=== PATIENT | female | born 1995 | race Caucasian/White ===

== ENCOUNTER 2017-02-14 18:58 | Emergency (ER) | payer OTHER ==
[~2017-02-14] VITALS: Ht 162.6 cm; Wt 91.2 kg
[~2017-02-14 18:58] MED LIST: BENADRYL50 MG PO; EPIPEN ADU0.3 MG/0.3 IM; PREDNISONE20 MG PO; PREDNISONE50 MG PO; ZANTAC150 MG PO; ZITHROMAX Z-PA250 MG PO
[2017-02-14 20:01] VITALS: BP 125/78
== END 2017-02-14 20:02 | disposition home or self-care (01) ==
LOC: EME 18:58
DX: M25.512 Pain in left shoulder (principal)
CPT/HCPCS: 73030; 99281; 99283